=== PATIENT | female | born 1945 | race Caucasian/White ===

== ENCOUNTER 2017-05-22 15:52 | Observation (INO) | payer MEDICARE, OTHER ==
--- NOTE | 2017-05-22 16:09 | ERNOTE ---
Dyspnea - General Presenting Symptoms: shortness of breath Time Seen by Provider: 05/22/17 15:55 Source: patient Exam Limitations: no limitations - Immun/Allergies/Home Medications Immunizations: IMMUNIZATION HX Immunizations Up to Date Yes History of Influenza Vaccine No Hx Pneumococcal Vaccination No Allergies/Adverse Reactions: Allergies pseudoephedrine [From Sudafed] Allergy (Verified 05/22/17 15:58) Home Medications: HOME MEDICATIONS Glucosamine/D3/Boswellia Elizabeth [Osteo Bi-Flex Caplet] 1 each PO DAILY 05/22/17 [ Last Taken Unknown] - History of Present Illness Narrative: Patient is here for increasing shortness of breath over the last two weeks. It first started when she walked up the stairs from doing laundry (shortness of breath and palpitations at that time.The patient is mainly short of breath with minimal exertion, not at rest, able to sleep with two pillows only, nocturia x1 unchanged, denies chest pain. Patient denies any chronic medical problems, has not seen a provider in at least 15 years Severity: moderate Initiating event: Denies: upper resp illness, out of meds Frequency of episodes: Reports: no prior episodes Modifying Factors - (Improves): Reports: rest Modifying Factors (Worsens): Reports: activity Associated Symptoms-Dyspnea: Denies: fever/chills, chest pain/discomfort, wheezing, dizziness Prior Treatment: Denies: recently seen Review of Systems - Review of Systems Constitutional: Absent: recent illness, fever EYE: Absent: double vision ENT: Absent: nose congestion Respiratory: Present: See HPI, cough - minimal, dry Cardiology: Absent: chest pain, palpitations Gastrointestinal/Abdominal: Absent: vomiting, diarrhea, abdominal pain Genitourinary: Present: no symptoms reported Musculoskeletal: Absent: back pain Neurological: Absent: weakness, numbness - Patient's Past Medical History Patient History - Medical: Osteoarthritis Patient History - Cardiac/Respiratory: No pertinent hx Patient History - Cancer: No Hx of Cancer - Social History Living Situations: home Smoking Status: Never smoker Have you smoked in the past 12 months: No Do you dip or chew tobacco: No - Immunizations Immunizations Up to Date: No Hx Pneumococcal Vaccination: No History of Influenza Vaccine: No Physical Exam - Physical Exam General Appearance: Present: wd/wn, alert, no apparent distress Eye Exam: Normal inspection: bilateral, PERRL: bilateral Ears, Nose, Throat: Present: normal ENT inspection, normal pharynx Respiratory: Present: no respiratory distress, normal breath sounds, no accessory muscle use, lungs clear Cardiovascular/Chest: Present: regular rate, rhythm, no murmur Gastrointestinal/Abdominal: Present: nontender, nondistended, soft Extremity Exam: Present: no edema Neurological Exam: Present: alert, oriented, normal mood/affect Skin Exam: Present: normal color, warm/dry ED Progress - Results and Orders Patient's Lab Results:: I have reviewed the patient's lab results. - Vital Signs Patient's Vital Signs:: I have reviewed the patient's vital signs. Vital Signs: Vital Signs 05/22/17 15:54 Temperature 36.8 C Pulse Rate 91 Respiratory 18 Rate Blood Pressure 134/78 O2 Sat by Pulse 90 Oximetry - EKG EKG: NSR, nonspecific ST T wave changes, other - no acute changes, no prior EKG read: Interp. by me - X-Ray X-Ray #1 X-Ray: chest - no acute changes Interpretation: Interp. by me - Progress/Reassessment Chief Complaint: Dyspnea Progress Note-Subjective: 05/22/17 16:48 discussed test results with patient and friends, comfortable in bed, O2 sats 90- 92% at rest 05/22/17 16:55 with exertion O2 sats drop to 85-87% 05/22/17 17:20 discussed positive d-dimer with patient and friends, will get chest CT 05/22/17 18:[address] with radiologist: extensive PE all lobes, no saddle embolus, no sign of heart strain 05/22/17 18:10 discussed results with patient and family, agreed to admission 05/22/17 18:[address] Chavez, okay to admit for observation, will give lovenox in ER, he will discuss medication option with patient once in hospital Departure Clinical Impression: Bilateral pulmonary embolism - Departure Disposition: [facility] Condition: Stable
[2017-05-22 16:15] LABS: Hematocrit 42.4 % (37.0-47.0); Mean Cell Volume 92.6 fl (78-100); Mean Corpuscular Hemoglobin 30.6 pg (27-31); Mean Platelet Volume 9.4 fl (6.0-9.5); Neutrophil # 6.5 K/mm3 (1.3-6.0); Neutrophil % 75.7 % (42-75.0); Platelet Count 261 K/mm3 (150-450); Red Blood Count 4.58 M/mm3 (4.2-5.4); Red Cell Distribution Width 12.1 % (11.5-14.0); White Blood Count 8.6 K/mm3 (4.0-10.5)
[2017-05-22 16:33] LABS: Troponin I 0.026 ng/ml (0.00-0.10)
[2017-05-22 16:35] LABS: Albumin * 3.6 gm/dl (3.4-5.0); Anion Gap 13.4 mmol/L (6.8-13.8); BUN/Creatinine Ratio 13.5 (9.0-21.6); Bilirubin, Total 0.4 mg/dL (0.0-1.1); Ca. Corrected For Albumin 8.8 mg/dL (8.4-10.2); Calcium * 8.8 mg/dL (7.9-10.9); Carbon Dioxide 27.5 mmol/L (24-32.6); Potassium 3.9 mmol/L (3.4-4.6)
[2017-05-22] MEDS ORDERED: ENOXAPARIN SODIUM 100 MG/ML SYRG SC ONE ×2 (18:13→18:14)
[2017-05-22] MEDS ORDERED: ENOXAPARIN SODIUM 30 MG/0.3 ML SYRG SC ONE (18:14)
--- NOTE | 2017-05-22 20:54 | HP ---
Chief Complaint - Chief Complaint Date of Service: 05/22/17 Time of Service: 20:53 Chief Complaint: " SOB". Source of HPI- Pt reliable, ERP report. History of Present Illness: Ms. Conway is a 72-yr-old [facility] pt with no pertinent medical history. She states that she rarely sees a doctor & the last time she saw her PCP was 10-15 yrs ago. She reports that she first developed SOB about 2 weeks ago while coming up the stairs from her basement. She says that she had quite a bit of laundry to do and each time she had to walk up the stairs, the SOB got worse, and that this was the first time she ever ''experienced such thing." Then with the following days, she noticed that even walking short distances such as from bedroom to the bathroom caused her to be dyspneic. She finally came to the ED today as she wasn't getting better and felt fatigued. Her mobility is not the greatest due to Koby. Knee pain and says she has prolonged periods of sitting due to this. She reports that she attempts perform several leg exercises while sitting. On Physical exam, she is noted to have Unilateral leg swelling with the RT> LT. The pt denies the associated symptoms of n/v, diaphoresis, palpitations, chest pain, syncope or fevers. She denies trauma or recent surgeries. Family history is negative for thrombophilia. At the ED, she had an elevated D-dimer of 3.87 and follow-up CTA Chest revealed she had extensive Pulmonary Embolus involving both lungs. Labwork was unremarkable except for CR of 1.55. She had desaturations to 88-89% RA with ambulation at the ED. She will be admitted under observation for telemetry monitoring. - Patient's Past Medical History Patient History - Medical: Osteoarthritis Patient History - Cardiac/Respiratory: No pertinent hx Patient History - Cancer: No Hx of Cancer Patient History - Surgical Procedures: Other, Orthopedic Patient History - Other: None - Family History Father Family History - Cardiac/Respiratory: CVA/Stroke Family History - Cancer: Other Mother Family History - Cardiac/Respiratory: Coronary Heart Disease, Deep Vein Thrombosis - following cholecystectomy. , Myocardial Infarction - Social History Living Situations: home Psych History: No pertinent hx Smoking Status: Never smoker Have you smoked in the past 12 months: No Do you dip or chew tobacco: No - Immunizations Immunizations Up to Date: No Hx Pneumococcal Vaccination: No History of Influenza Vaccine: No Review Of Systems (GEN) - Review of Systems Generalized/Overall Review: Present: Fatigue. Absent: Weakness, Chills, Fever, Malaise EENTM: Absent: Eye Pain, Blurred Vision, Tearing, Ear Discharge, Nose Congestion Respiratory: Present: Shortness of Breath. Absent: Cough, Orthopnea, Stridor Cardiac: Absent: Chest Pain, Edema, Palpitations, Syncope Abdominal: Absent: Nausea, Vomiting, Hematemesis, Abdominal Pain, Constipation, Diarrhea Genitourinary: Absent: Burning, Itching, Urgency, Frequency, Incontinent Musculoskeletal: Absent: Joint Pain, Back Pain, Muscle Pain Neurological: Present: Weakness. Absent: Headache, Anxiety, Depressed Skin: Absent: Dryness, Lesions, Lumps Endocrine: Present: Flushing. Absent: Intolerance to Cold, Intolerance to Heat , Increased Hunger Immunizations: IMMUNIZATION HX Immunizations Up to Date No History of Influenza Vaccine No Hx Pneumococcal Vaccination No Allergies/Adverse Reactions: Allergies Allergy/AdvReac Type Severity Reaction Status Date / Time pseudoephedrine Allergy Verified 05/22/17 15:58 [From Sudafed] Home Medications: HOME MEDICATIONS Glucosamine/D3/Boswellia Elizabeth [Osteo Bi-Flex Caplet] 1 each PO DAILY 05/22/17 [ Last Taken Unknown] Exam - Exam Vital Signs: Vital Signs - Last Taken Temp 36.4 C L 05/22/17 19:53 Pulse 85 05/22/17 19:53 Resp 20 05/22/17 19:53 BP 126/72 05/22/17 19:53 Pulse Ox 96 05/22/17 19:53 Constitutional: Present: Alert, Oriented x3, Cooperative, No distress ENT Exam: Present: normal ENT inspection, dry mucous membranes. Absent: nasal drainage, pharyngeal erythema Eye Exam: bilateral eye: normal inspection, PERRL Neck: Present: non-tender, full range of motion, supple Back Exam: Present: normal inspection, no CVA tenderness Breasts: Present: Exam deferred Respiratory: Present: no respiratory distress, No rales, No wheezing Cardiovascular/Chest: Present: regular rate, rhythm, no chest tenderness, no murmur Abdomen: Present: Normal bowel sounds, soft, nontender, obese /Rectal: Present: Exam deferred Extremity: Present: non-tender, lower extremity edema - Non pitting Edema with RT> LT . Skin Exam: Present: warm/dry, no cyanosis Lymphatic: Present: no adenopathy Neurologic: Present: no motor/sensory deficits, alert, oriented x 3 Appearance: Present: appropriate appearance, appropriate insight Eye contact: Present: cooperative, good eye contact, normal speech Thoughts: Present: normal thought pattern, no apparent hallucination Diagnostic Studies: Laboratory Results WBC 8.6 K/mm3 (4.0-10.5) 05/22/17 16:10 RBC 4.58 M/mm3 (4.2-5.4) 05/22/17 16:10 Hgb 14.0 gm/dL (12.5-16.0) 05/22/17 16:10 Hct 42.4 % (37.0-47.0) 05/22/17 16:10 MCV 92.6 fl (78-100) 05/22/17 16:10 MCH 30.6 pg (27-31) 05/22/17 16:10 MCHC 33.0 g/dl (32-36) 05/22/17 16:10 RDW 12.1 % (11.5-14.0) 05/22/17 16:10 Plt Count 261 K/mm3 (150-450) 05/22/17 16:10 MPV 9.4 fl (6.0-9.5) 05/22/17 16:10 Immature Gran % (Auto) 0.30 % (0.001-0.429) 05/22/17 16:10 Immature Gran # (Auto) 0.03 K/mm3 (0.000-0.0310) 05/22/17 16:10 Neutrophils % 75.7 % (42-75.0) H 05/22/17 16:10 Lymphocytes % 15.3 % (20-51) L 05/22/17 16:10 Monocytes % 7.6 % (0.0-9) 05/22/17 16:10 Eosinophils % 0.5 % (0.0-3.0) 05/22/17 16:10 Basophils % 0.6 % (0.0-1.0) 05/22/17 16:10 Nucleated RBC % 0.0 k/mm3 (0-1) 05/22/17 16:10 Neutrophils # 6.5 K/mm3 (1.3-6.0) H 05/22/17 16:10 Lymphocytes # 1.3 k/mm3 (1.5-3.5) L 05/22/17 16:10 Monocytes # 0.7 k/mm3 (0.0-1.0) 05/22/17 16:10 Eosinophils # 0.0 k/mm3 (0.0-0.7) 05/22/17 16:10 Absolute Basophils 0.1 k/mm3 (0.0-0.1) 05/22/17 16:10 D-Dimer 3.87 mg/L (0.19-0.49) H 05/22/17 16:01 Sodium 144 mmol/L (132-142) H 05/22/17 16:10 Plasma Sodium 144 mmol/L (130-142) H 05/22/17 16:10 Potassium 3.9 mmol/L (3.4-4.6) 05/22/17 16:10 Chloride 107 mmol/L (97-106) H 05/22/17 16:10 Carbon Dioxide 27.5 mmol/L (24-32.6) 05/22/17 16:10 Anion Gap 13.4 mmol/L (6.8-13.8) 05/22/17 16:10 BUN 21 mg/dL (3-23) 05/22/17 16:10 Creatinine 1.55 mg/dL (0.4-1.4) H 05/22/17 16:10 Est GFR (Non-Af Amer) 35 mL/min (60-130) L 05/22/17 16:10 BUN/Creatinine Ratio 13.5 (9.0-21.6) 05/22/17 16:10 Random Glucose 114 mg/dL (70-110) H 05/22/17 16:10 Calcium 8.8 mg/dL (7.9-10.9) 05/22/17 16:10 Calcium Adj for Albumin 8.8 mg/dL (8.4-10.2) 05/22/17 16:10 Total Bilirubin 0.4 mg/dL (0.0-1.1) 05/22/17 16:10 AST 11 U/L (0-48) 05/22/17 16:10 ALT 9 U/L (19-67) L 05/22/17 16:10 Alkaline Phosphatase 82 U/L (50-170) 05/22/17 16:10 Troponin I 0.026 ng/ml (0.00-0.10) 05/22/17 16:10 B-Natriuretic Peptide 74 pg/mL (5-325) 05/22/17 16:10 Total Protein 7.0 gm/dL (6.2-8.2) 05/22/17 16:10 Albumin 3.6 gm/dl (3.4-5.0) 05/22/17 16:10 Assessment/Plan - Assessment/Plan (1) Bilateral pulmonary embolism Assessment: Pt presented with Dyspnea that has gone on for 2 weeks and CTA chest revealed extensive koby. Pulmonary embolism. Pt has no hemodynamic instability noted, and no RT heart strain on CT chest. History and physical shows likelihood of DVT on RLE which might have arose to development of Pulmonary embolism. She received Lovenox SQ at the ED & will continue q 12 hrs and she will be placed on telemetry monitoring. Since this appears to be a provoked Pulmonary Embolism, will need anticoagulation for at least 3 moths. I have discussed the available anticoagulation with DOAC & VKA therapy. She does not want to be on Coumadin due to frequent monitoring it requires. She prefers DOAC such as Pradaxa but this requires 5-10 days of initial parenteral anticoagulant prior to Pradaxa use. She is also okay with Xeralton or Eliquis. Will have case mgt assist with determination of coverage she can get from insurance and based on what she can afford. Should be able to discharge tomorrow if no acute events overnight. Problem: Acute (2) Acute kidney injury Assessment: Cr of 1.55, will provide IVF hydration. Check BMP in am. Problem: Acute (3) DVT (deep venous thrombosis) Problem: Suspected
[2017-05-22] MEDS: 0.5 NORMAL SALINE 1,000 ML IV PRN (21:05)
[2017-05-23] MEDS: 0.5 NORMAL SALINE 1,000 ML IV PRN (05:08)
[2017-05-23] MEDS ORDERED: ENOXAPARIN SODIUM 30 MG/0.3 ML SYRG SC ONE (05:10)
[2017-05-23] MEDS ORDERED: ENOXAPARIN SODIUM 100 MG/ML SYRG SC ONE (05:10)
[2017-05-23] MEDS ORDERED: ENOXAPARIN SODIUM 60 MG/0.6 ML SYRG SC SCH (06:00)
[2017-05-23 06:07] LABS: Anion Gap 12.8 mmol/L (6.8-13.8); Calcium * 8.7 mg/dL (7.9-10.9); Carbon Dioxide 26.1 mmol/L (24-32.6); Estimated Creat Clear 41.2; Potassium 3.9 mmol/L (3.4-4.6)
[2017-05-23 07:53] LABS: Prothrombin Time (Patient) 12.1 Seconds (9.4-11.4)
[2017-05-23 07:54] LABS: INR 1.16 INR (0.90-1.10)
[2017-05-23 11:13] VITALS: BP 128/87
--- NOTE | 2017-05-23 12:11 | DS ---
(1) Bilateral pulmonary embolism Problem: Acute Description of Stay: Ela was admitted with bilateral pulmonary embolisms. She was medically stable. She was admitted for observation over night to monitor respiratory status. There were no concerns during hospital course. Researched anticoagulation medications and cost with pharmacy. Medication options were discussed and she chose Eliquis. This was started and she will follow up with PCP as outpatient. Procedures Performed: none Discharge Disposition: Home self care Disposition: Home self-care Condition: Good Discharge Activity: Activity as tolerated Discharge Diet: General/regular food Referrals: Mata Chavez DO [Staff Physician] - One Week Problem Oriented Discharge Instructions to Patient/Family: Pulmonary Embolism Additional Patient Instructions (free text): [facility] HH courtesy visit. Please call report and fax orders and face to face upon discharge. Please make TCM appoinment at discharge, if applicable. Thank you! Lou @ [phone]. Follow up appointment with Dr. Chavez on 05/30/17 at 10:30am Please call in Jorge to Devon Morales at discharge. Prescriptions (Any new or edited meds): Apixaban [Eliquis] 10 mg PO BID #70 tablet Complete Home Medications List: Complete Home Medication List: Glucosamine/D3/Boswellia Elizabeth [Osteo Bi-Flex Caplet] 1 each PO DAILY 05/22/17 Apixaban [Eliquis] 10 mg PO BID #70 tablet 05/23/17
== END 2017-05-23 14:08 | disposition home health service (06) ==
LOC: ER 15:52 → MS 18:15
PROVIDERS: ADMIT Family Medicine; ATTEND Family Medicine
DX: I26.99 Other pulmonary embolism without acute cor pulmonale (principal); N17.9 Acute kidney failure, unspecified; M17.0 Bilateral primary osteoarthritis of knee; I82.401 Acute embolism and thrombosis of unspecified deep veins of right lower extremity
CPT/HCPCS: 36415; 71020; 71275; 80048; 80053; 83880; 84484; 85025; 85379; 85610; 93005; 94760; 96372; 99284; G0378